=== PATIENT | male | born 1985 | race Caucasian/White ===

== ENCOUNTER 2018-06-27 17:36 | Emergency (ER) | payer OTHER ==
[2018-06-27 18:31] LABS: Hemoglobin 16.1 g/dL (14.0-18.0); Mean Corpuscular HGB CONC 34.4 g/dL (32.0-36.0); Mean Corpuscular Hemoglobin 36.4 pg (27.0-31.0); Mean Platelet Volume 9.2 fL (7.4-10.4); Platelet Count 155 thou/uL (130-400); RBC Distribution Width 12.3 % (11.5-14.5); Red Blood Cell (RBC) Count 4.41 mill/uL (4.70-6.10)
[2018-06-27 18:38] LABS: ALT (SGPT) 428 U/L (8-55); AST (SGOT) 374 U/L (5-34); Albumin 4.7 g/dL (3.5-5.0); Alkaline Phosphatase 92 U/L (40-150); Anion Gap 25 mmol/L (10-20); BUN (Urea Nitrogen) 10 mg/dL (8.9-20.6); Calc. Creatinine Clearance 0 mL/min (70-130); Calcium 9.9 mg/dL (7.8-10.44); Carbon Dioxide 18 mmol/L (22-29); Chloride 93 mmol/L (98-107); Estimated GFR-MDRD 72; Globulin 3.8 g/dL (2.4-3.5); Glucose 198 mg/dL (70-105); Potassium 3.3 mmol/L (3.5-5.1); Protein, Total 8.5 g/dL (6.0-8.3); Sodium 133 mmol/L (136-145)
[2018-06-27 18:43] LABS: #Basophils 0.1 thou/uL (0.0-0.2); #Lymphocytes 1.2 thou/uL (1.20-3.40); #Monocytes 0.6 thou/uL (0.11-0.59); #Neutrophils 5.2 thou/uL (1.40-6.50); %Basophils 0.8 % (0.0-1.0); %Eosinophils 0.3 % (0.0-10.0); %Lymphocytes 16.7 % (21.0-51.0); %Monocytes 7.8 % (0.0-10.0); %Neutrophils 74.4 % (42.0-75.0); PLT Morphology Comment Appears Adequate
[2018-06-27] MEDS ORDERED: Lorazepam 2 MG/ML VIAL ONE (19:19)
--- NOTE | 2018-06-27 20:04 | RAD ---
AP VIEW CHEST: HISTORY: Seizure. FINDINGS: AP view chest is obtained. The lungs are well aerated. No evidence of active intrathoracic disease is seen. No evidence of effusions, pneumonia, or pneumothorax is seen. IMPRESSION: Unremarkable anterior-posterior view chest. POS: [facility]
--- NOTE | 2018-06-27 20:44 | CT ---
CT BRAIN: HISTORY: A 33-year-old male. Seizure. TECHNIQUE: Noncontrast enhanced CT images of the brain are obtained from the base of the skull through the verte x. Brain and bone windows are obtained. FINDINGS: CT images of the brain demonstrate the brain to be unremarkable. No evidence of intracranial masses, hemorrhages, strokes, or contusions seen. The ventricles are of normal size. IMPRESSION: Normal CT brain. POS: [facility]
[2018-06-27 21:09] LABS: CKMB 1.1 ng/mL (0-6.6); Troponin I Less than 0.010 ng/mL (< 0.028)
[2018-06-27 21:45] LABS: Base Excess-Venous 2.9 mmol/L (0 (+/- 2.5)); Bicarbonate (HCO3v) 26.1 mmol/L (1.0-85.0); CO2 Tension (PvCO2) 35.4 mmHg (41.0-51.0); Calcium, Ionized 1.03 mmol/L (1.12-1.32); Hemoglobin - Calc 15.9 g/dL (12.0-18.0); O2 Tension (PvO2) 51.7 mmHg (35.0-45.0); Potassium 3.7 mmol/L (3.4-4.7); T. Carbon Dioxide 27.2 mmol/L (1.0-85.0); pH (Venous) 7.476 (7.35-7.45); vO2 Saturation-calc 88.8 % (94-98)
[2018-06-27] MEDS ORDERED: levETIRAcetam 500 MG/100 ML PREMIX BAG ONE (22:07)
[2018-06-27 22:08] LABS: Troponin I Less than 0.010 ng/mL (< 0.028)
== END 2018-06-27 22:41 | disposition home or self-care (01) ==
LOC: ERS 17:36
DX: F10.10 Alcohol abuse, uncomplicated (principal); R25.1 Tremor, unspecified; F41.9 Anxiety disorder, unspecified; Z87.891 Personal history of nicotine dependence; Z79.899 Other long term (current) drug therapy
CPT/HCPCS: 36415; 70450; 71045; 80053; 82010; 82330; 82553; 82803; 83735; 84100; 84146; 84484; 85025; 93005; 94760; 96361; 96374; 96375; J1953; J2060